=== PATIENT | female | born 1965 | race Caucasian/White ===

== ENCOUNTER 2018-05-24 22:22 | Emergency (ER) | payer OTHER ==
[~2018-05-24] VITALS: Ht 157.5 cm; Wt 90.7 kg
[2018-05-24 22:38] VITALS: BP 140/88
--- NOTE | 2018-05-24 22:38 | NUR ---
PT AMBULATED TO BED 06 ACCOMPANIED BY .
--- NOTE | 2018-05-24 22:40 | NUR ---
PT PRESENTED ER WITH C/O PAIN TO BACK X 2 DAYS POST STATUS MOVING A LADDER. PT STATED SHE STRAINED HER BACK WHILE MOVING A LADDER. PT ALSO CUT HER LEFT DIGIT. PT HAS PAIN LEVEL OF 8/10 AT THIS TIME. A/O X 4. KNA AND MEDICAL HX IS DM. ; VSS; PATIENT POSITIONED FOR COMFORT; HOB ELEVATED; BEDRAILS UP X2; BED DOWN. ER MD MADE AWARE OF PT STATUS.
[2018-05-24] MEDS ORDERED: CYCLOBENZAPRINE 10 MG TAB PO ONE (23:10)
[2018-05-24] MEDS ORDERED: KETOROLAC 30 MG/ML VIAL IM ONE (23:10)
[2018-05-24] MEDS ORDERED: BACITRACIN OINT 500 UNITS/GM PKT TP ONE (23:15)
--- NOTE | 2018-05-25 00:20 | NUR ---
AWAITING DISCHARGE PAPERWORK FROM DR BOLIVAR.
[2018-05-25 00:52] VITALS: BP 128/78
--- NOTE | 2018-05-25 00:54 | NUR ---
Patient discharged with v/s stable. Written and verbal after care instructions given and explained. Patient alert, oriented and verbalized understanding of instructions. Ambulatory with steady gait. All questions addressed prior to discharge. ID band removed. Patient advised to follow up with PMD. Rx of NORCO,FLEXERIL AND IBUPROFEN given. Patient educated on indication of medication including possible reaction and side effects. Opportunity to ask questions provided and answered.
== END 2018-05-25 00:52 | disposition home or self-care (01) ==
LOC: MED 22:22
DX: S39.012A Strain of muscle, fascia and tendon of lower back, initial encounter (principal); E11.9 Type 2 diabetes mellitus without complications; I10 Essential (primary) hypertension; X50.9XXA Other and unspecified overexertion or strenuous movements or postures, initial encounter; Y93.89 Activity, other specified; Y92.89 Other specified places as the place of occurrence of the external cause; Y99.8 Other external cause status
CPT/HCPCS: 81002; 96372; 99283; J1885

== ENCOUNTER 2019-04-08 23:50 | Emergency (ER) | payer OTHER ==
[~2019-04-08] VITALS: Ht 154.9 cm; Wt 92.1 kg
--- NOTE | 2019-04-08 23:59 | NUR ---
PT TAKEN TO BED 9
[2019-04-09 00:02] VITALS: BP 136/79
--- NOTE | 2019-04-09 00:04 | NUR ---
EMT AT BEDSIDE FOR EKG.
--- NOTE | 2019-04-09 00:10 | NUR ---
54/F PRESENTS TO ED WITH FAMILY/FRIEND, C/O 04/03 CONSTANT L SIDED PRESSURE-LIKE PAIN, RADIATING TO L SHOULDER, X1 HR. PT DENIES N/V, DENIES COUGH. PT AWAKE AND ALERT, SKIN NORMAL COLOR WARM AND DRY, RR EVEN AND UNLABORED. HR EVEN AND REGULAR, NSR ON MONITOR. HX DM, HYPOTHYROID, CHOLECYSTECTOMY RX METFORMIN, SYNTHROID, TOOK ASPIRIN WITHOUT RELIEF. DENIES ALCOHOL/SUBSTANCE ABUSE, DENIES HEAVY LIFTING
--- NOTE | 2019-04-09 00:12 | NUR ---
Dr. Villagomez examining patient.
[2019-04-09] MEDS ORDERED: KETOROLAC 60 MG/2 ML VIAL IM ONE (00:20)
[2019-04-09 01:45] VITALS: BP 118/79
--- NOTE | 2019-04-09 01:45 | NUR ---
PT DISCHARGED WITH PAPERWORK. RX MOTRIN FOR PAIN. EDUCATED PT REGARDING MEDICATIONS AND S/E. EDUCATED PT REGARDING DISCHARGE DIAGNOSIS. PT VERBALIZED UNDERSTANDING OF TEACHING. TOLD PT WHEN TO F/U WITH PCP AND WHEN TO RETURN TO ED. PT VSS. ALL QUESTIONS ANSWERED.
== END 2019-04-09 01:45 | disposition home or self-care (01) ==
LOC: MED 23:50
DX: R07.89 Other chest pain (principal); E11.9 Type 2 diabetes mellitus without complications; I10 Essential (primary) hypertension
CPT/HCPCS: 71045; 73030; 82948; 96372; 99283; J1885

== ENCOUNTER 2021-01-05 00:19 | Emergency (ER) | payer OTHER ==
[~2021-01-05] VITALS: Ht 157.5 cm; Wt 89.8 kg
[2021-01-05 00:29] VITALS: BP 132/71
--- NOTE | 2021-01-05 00:40 | NUR ---
PATIENT 55 Y/O FEMALE BIB SELF FOR C/O 04/03 NECK PAIN RADIATING TO BILATERAL SHOULDERS X 1 DAY. PATIENT DENIES ANY INJURY. PATIENT ABLE TO MOVE NECK LATERALLY. PATIENT DENIES TAKING PAIN MEDICATION FOR PAIN. DENIES C/P. LUNG SOUNDS CLEAR A/P BILAT. PERRLA 3MM BRISK. PATIENT DENIES PRATER, BLURRED VISION, OR DIZZYNESS. MEDHX: HTN, DM TYPE II, HYPOTHRYROID. ALLERGIES: NKA
--- NOTE | 2021-01-05 00:40 | NUR ---
PT AMBULATED TO BED 08.
--- NOTE | 2021-01-05 01:12 | NUR ---
MARCELA Brooks at bedside for Medical Evaluation.
[2021-01-05] MEDS ORDERED: KETOROLAC 60 MG/2 ML VIAL IM ONE (01:15)
[2021-01-05] MEDS ORDERED: IBUP-2213 PO (01:26)
[2021-01-05 01:40] VITALS: BP 130/84
== END 2021-01-05 01:40 | disposition home or self-care (01) ==
LOC: MED 00:19
DX: M54.2 Cervicalgia (principal); E11.9 Type 2 diabetes mellitus without complications; I10 Essential (primary) hypertension; E07.9 Disorder of thyroid, unspecified
CPT/HCPCS: 81002; 81025; 96372; 99283; J1885

== ENCOUNTER 2021-12-24 06:17 | Emergency (ER) | payer OTHER ==
[~2021-12-24] VITALS: Ht 152.4 cm; Wt 94.3 kg
[~2021-12-24 06:17] MED LIST: IBUP-2213 PO
[2021-12-24 06:25] VITALS: BP 122/76
--- NOTE | 2021-12-24 06:32 | NUR ---
PT AMBULATORY TO BED 12
--- NOTE | 2021-12-24 06:37 | NUR ---
56 Y/O FEMALE BIBS, C/O DIFFICULT TO SWALLOW X1 HOUR. PT COMPLAINS OF PAIN MOSTLY ON THE LEFT SIDE OF HER NECK WHEN TALKING OR SWALLOWING. NO SWELLING TO NECK, NO TRAUMA NOTED, NO DIFFICULTY BREATHING. PT IS SPEAKING IN FULL SENTENCES. PT DENIES FEVER, COUGH, CP, OR SOB. PT AMBULATED TO BED W/ STEADY GAIT AND W/O ASSISTANCE. PT IS ALSO COMPLAINING OF SWOLLEN RIGHT FOOT FROM TRAUMA X3 DAYS AGO. MINOR DISCOLORATION AND SWELLING NOTED. CMS INTACT. PT SEATED IN BED WITH HOB RAISED AND BED IN LOWEST POSITION, WITH RAIL UP X1. HX: DM, THYROID ISSUES NKA MED: METFORMIN, SYNTHROID
--- NOTE | 2021-12-24 06:50 | NUR ---
Dr. Mccann examining patient.
--- NOTE | 2021-12-24 07:07 | NUR ---
Report and continuation of care received from MIHAELA Brandon.
[2021-12-24] MEDS ORDERED: BENZ-300 PO (07:34)
[2021-12-24] MEDS ORDERED: IBUP-2213 PO (07:34)
--- NOTE | 2021-12-24 07:40 | NUR ---
Patient discharged with v/s stable. Written and verbal after care instructions given and explained. Patient alert, oriented and verbalized understanding of instructions. Ambulatory with steady gait. All questions addressed prior to discharge. ID band removed. Patient advised to follow up with PMD. Rx of Ibuprofen, Benzocaine/Menthol given. Patient educated on indication of medication including possible reaction and side effects. Opportunity to ask questions provided and answered.
== END 2021-12-24 07:40 | disposition home or self-care (01) ==
LOC: MED 06:17
DX: K11.5 Sialolithiasis (principal); K11.20 Sialoadenitis, unspecified
CPT/HCPCS: 99283

== ENCOUNTER 2023-04-10 18:37 | Emergency (ER) | payer OTHER ==
[~2023-04-10] VITALS: Ht 157.5 cm; Wt 90.3 kg
[~2023-04-10 18:37] MED LIST changes: +BENZ-300 PO
[2023-04-10 18:46] VITALS: BP 138/69; PULSE 78; RESP 18; TEMP 97.8; O2SAT 91
[2023-04-10] MEDS ORDERED: PROCHLORPERAZINE 10 MG/2 ML VIAL IM ONE (20:00)
[2023-04-10] MEDS ORDERED: KETOROLAC 30 MG/ML VIAL IM ONE (20:00)
[2023-04-10 20:22] LABS: BASOPHILS # (AUTO) 0.1 K/uL (0.00-0.22); BASOPHILS % (AUTO) 0.8 % (0.0-2.0); EOSINOPHILS # (AUTO) 0.1 K/uL (0-0.4); EOSINOPHILS % (AUTO) 1.7 % (0.0-4.0); HEMATOCRIT 43.2 % (36-48); HEMOGLOBIN 14.5 g/dL (12.0-16.0); LYMPHOCYTES # (AUTO) 2.4 K/uL (2.5-16.5); LYMPHOCYTES % (AUTO) 33.6 % (20.5-51.1); MEAN CORPUSCULAR HEMOGLOBIN 30 pg (27-31); MEAN CORPUSCULAR HGB CONC 34 g/dL (33-37); MEAN CORPUSCULAR VOLUME 88.4 fL (80-94); MONOCYTES # (AUTO) 0.6 K/uL (0.8-1.0); MONOCYTES % (AUTO) 7.8 % (1.7-9.3); NEUTROPHILS % (AUTO) 56.1 % (42.2-75.2); PLATELET COUNT (AUTO) 272 K/uL (140-450); RED BLOOD CELL COUNT(AUTO) 4.89 MIL/uL (4.20-5.40); RED CELL DISTRIBUTION WIDTH 13.6 % (11.6-13.7); WHITE BLOOD COUNT (AUTO) 7.1 K/uL (4.8-10.8)
[2023-04-10 20:49] LABS: ALBUMIN 3.5 g/dL (3.4-5.0); ANION GAP 11.4 (8-16); CALCIUM 9.5 mg/dL (8.5-10.1); CARBON DIOXIDE 29.6 mmol/L (21-32); TOTAL BILIRUBIN 0.5 mg/dL (0.0-1.0); TOTAL PROTEIN, SERUM 7.4 g/dL (6.4-8.2)
[2023-04-10] MEDS ORDERED: KETOROLAC 30 MG/ML VIAL ONE (21:46)
[2023-04-10] MEDS ORDERED: diphenhydrAMINE 50 MG/ML VIAL ONE (21:46)
[2023-04-10] MEDS ORDERED: PROCHLORPERAZINE 10 MG/2 ML VIAL ONE (21:47)
[2023-04-10] MEDS ORDERED: ONDA-188 SL (22:39)
[2023-04-10] MEDS ORDERED: IBUP-2213 PO (22:39)
[2023-04-10 23:05] VITALS: BP 138/69; PULSE 78; RESP 18; TEMP 97.8; O2SAT 91
== END 2023-04-10 23:05 | disposition home or self-care (01) ==
LOC: MED 18:37
DX: G43.909 Migraine, unspecified, not intractable, without status migrainosus (principal); K85.90 Acute pancreatitis without necrosis or infection, unspecified; E11.9 Type 2 diabetes mellitus without complications; I10 Essential (primary) hypertension; E07.9 Disorder of thyroid, unspecified; Z79.899 Other long term (current) drug therapy
CPT/HCPCS: 36415; 80053; 83690; 84484; 85025; 93005; 96372; 99284; J0780; J1200; J1885; Q0163